=== PATIENT | female | born 1965 | race Caucasian/White ===

== ENCOUNTER → 2016-11-05 | Outpatient (CLI) | payer BC ==
--- NOTE | 2016-11-06 10:00 | MM ---
Reason for exam: screening (asymptomatic). Last mammogram was performed 1 year ago. History: Patient is postmenopausal and is nulliparous. Family history of breast cancer in 2 maternal aunts and breast cancer in cousin. Physical Findings: A clinical breast exam by your physician is recommended on an annual basis and results should be correlated with mammographic findings. MG Screening Mammo w CAD Bilateral CC and MLO view(s) were taken. Prior study comparison: November 11, 2015, bilateral MG screening mammo w CAD. September 30, 2005, bilateral screening mammogram w/CAD. The breast tissue is extremely dense which could obscure a lesion on mammography. There is no discrete abnormality. No significant changes when compared with prior studies. ASSESSMENT: Negative, BI-RAD 1 RECOMMENDATION: Routine screening mammogram of both breasts in 1 year.
== END | disposition home or self-care (01) ==
LOC: RADMAMWWP 14:40
PROVIDERS: ATTEND Family Medicine
DX: Z12.31 Encounter for screening mammogram for malignant neoplasm of breast (principal)

== ENCOUNTER → 2017-12-16 | Outpatient (CLI) | payer BC ==
--- NOTE | 2017-12-17 13:51 | MM ---
Reason for exam: screening (asymptomatic). Last mammogram was performed 1 year and 1 month ago. History: Patient is postmenopausal and is nulliparous. Family history of breast cancer in 2 maternal aunts and breast cancer in cousin. Physical Findings: A clinical breast exam by your physician is recommended on an annual basis and results should be correlated with mammographic findings. MG Screening Mammo w CAD Bilateral CC and MLO view(s) were taken. Prior study comparison: November 05, 2016, bilateral MG screening mammo w CAD. November 11, 2015, bilateral MG screening mammo w CAD. The breast tissue is extremely dense which could obscure a lesion on mammography. There is chronic nodularity bilaterally. No significant changes when compared with prior studies. ASSESSMENT: Benign, BI-RAD 2 RECOMMENDATION: Routine screening mammogram of both breasts in 1 year.
== END | disposition home or self-care (01) ==
LOC: RADMAMWWP 09:14
PROVIDERS: ATTEND Family Medicine
DX: Z12.31 Encounter for screening mammogram for malignant neoplasm of breast (principal); Z80.3 Family history of malignant neoplasm of breast
CPT/HCPCS: 77067

== ENCOUNTER → 2018-12-27 | Outpatient (CLI) | payer BC ==
--- NOTE | 2018-12-28 10:56 | MM ---
Reason for exam: screening (asymptomatic). Last mammogram was performed 1 year ago. History: Patient is postmenopausal, history of other cancer, and is nulliparous. Family history of breast cancer in maternal aunt, breast cancer in cousin, and ovarian cancer in cousin. Physical Findings: A clinical breast exam by your physician is recommended on an annual basis and results should be correlated with mammographic findings. MG Screening Mammo w CAD Bilateral CC and MLO view(s) were taken. Prior study comparison: December 16, 2017, bilateral MG screening mammo w CAD. November 05, 2016, bilateral MG screening mammo w CAD. The breast tissue is extremely dense which could obscure a lesion on mammography. There is no discrete abnormality. No significant changes when compared with prior studies. ASSESSMENT: Negative, BI-RAD 1 RECOMMENDATION: Routine screening mammogram of both breasts in 1 year.
== END | disposition home or self-care (01) ==
LOC: RADMAMWWP 08:15
PROVIDERS: ATTEND Family Medicine
DX: Z12.31 Encounter for screening mammogram for malignant neoplasm of breast (principal); Z80.3 Family history of malignant neoplasm of breast
CPT/HCPCS: 77067

== ENCOUNTER 2019-05-31 07:27 | Day surgery (SDC) | payer BC ==
[2019-05-25 16:14] VITALS: BMI 19.8
[~2019-05-31 07:27] MED LIST: LACTATED RINGERS 1,000 ML IV SCH; LIDOCAINE 1% 20 ML VIAL (10MG/ML) FOR IV START INTRADERMA PRN; MOXIFLOXACIN HCL 0.5% DROPS 3 ML BTL OP ONE; TETRACAINE 0.5% OPHTH (PF) DROPS 4 ML BTL OP ONE; TIMOLOL 0.5% OPHTH DROPS 5 ML BTL OP ONE
[2019-05-31 08:05] VITALS: TEMP 97.8
[2019-05-31] MEDS: CYCLOPENTOLATE 1% OPHTH SOLN 2 ML BTL OP ONE ×5 (08:10→08:25)
[2019-05-31] MEDS: PHENYLEPHRINE 2.5% OPHTH DRP 2ML OP NR ×5 (08:13→08:25)
[2019-05-31] MEDS ORDERED: LACTATED RINGERS 1,000 ML IV ONE (08:17)
[2019-05-31] MEDS ORDERED: fentaNYL (PF) 50 MCG/ML 2 ML AMP ONE (08:26)
[2019-05-31] MEDS ORDERED: MIDAZOLAM 2 MG/2 ML VIAL ONE (08:26)
[2019-05-31] MEDS ORDERED: HYALURONATE SODIUM INTRAOCULAR 1 EACH SYRINGE (12MG/ML) INTRAOCULA ONE (08:34)
[2019-05-31] MEDS ORDERED: LIDOCAINE 1% (PF) 10MG/ML VIAL SQ ONE (08:34)
[2019-05-31] MEDS ORDERED: BALANCED SALT IRRIG SOLN COMB2 15 ML IRRIG.SOLN IRRIGATION ONE (08:34)
[2019-05-31] MEDS ORDERED: EPINEPHrine (PF) 0.3 ML in BALANCED SALT IRRIG SOLN COMB2 500 ML IRRIGATION ONE (08:35)
--- NOTE | 2019-05-31 08:59 | P.OP ---
Date of Procedure: 05/31/19 Preoperative Diagnosis: NS & CS & PSC & reg astig Postoperative Diagnosis: same Procedure(s) Performed: PIOL OS Implants: [id number] 11.50 Anesthesia: MAC Surgeon: Wai Liang Estimated Blood Loss (ml): 0 Pathology: none sent Condition: stable Disposition: same day Indications for Procedure: blurry vision Operative Findings: No complications
[2019-05-31 09:09] VITALS: RESP 16
[2019-05-31 09:18] VITALS: BP 148/72; PULSE 50
--- NOTE | 2019-05-31 22:55 | OP ---
OPERATIVE REPORT DATE OF SURGERY: May 31, 2019. PROCEDURE PERFORMED: Phacoemulsification of cataract and intraocular lens implant of the left eye. PREOPERATIVE DIAGNOSES: Nuclear sclerosis, cortical sclerosis, posterior subcapsular cataract and regular astigmatism. POSTOPERATIVE DIAGNOSES: Nuclear sclerosis, cortical sclerosis, posterior subcapsular cataract and regular astigmatism. SURGEON: Dr. Wai Liang. ANESTHESIA: Topical. ESTIMATED BLOOD LOSS: Is none. SPECIMEN: Taken none. NARRATIVE: After signing the proper consent, the patient was brought to the operating room. There she was asked to sit upright in the axis of 0 and 180 degrees were identified and marked with a gentian petra marker. She was then placed in the proper supine position under cardiac monitoring, then prepped and draped in the usual sterile manner. She was approached from her left temporal side and using previously acquired corneal topography information, the axis of 87 degrees was identified and marked with a corneal axis marker. At the 5 o'clock position, an MVR blade was used to create a paracentesis port. Through this opening, 1% xylocaine MPF 50/50 mix with balanced salt solution was injected into the anterior chamber. This was followed by stabilization of the anterior chamber with Amvisc. At the 3 o'clock position, a 2.5 mm keratome was used to create a self-sealing corneal flap incision. Through this opening a cystotome was introduced to begin a continuous tear capsulorrhexis which was then completed using the Utrata forceps. Hydrodissection and hydrodelineation of the lens was accomplished with balanced salt solution. Phacoemulsification of the lens utilizing phaco chop was accomplished in 6.68 seconds at 13% power. Additional Xylocaine MPF was instilled into the anterior chamber. This was followed by removal of the remaining cortex with irrigation and aspiration along with careful polishing of the posterior capsule in the capsule vacuum mode. Additional Amvisc was then used to stabilize the capsular bag and a Hang and Hang model ZCT 225 11.5 diopter posterior chamber intraocular lens was then injected into the capsular bag without difficulty. The remaining viscoelastic was removed from in and around the intra-ocular lens and the lens was then rotated into the proper position at 87 degrees and that was confirmed with the corneal marker at the end of the case. The eye was then brought to normal intraocular pressures through the paracentesis port with balanced salt solution and the eye was confirmed watertight. She then received 2 drops of 0.5% timolol followed by 2 drops of moxifloxacin, was then lightly patched and shielded in the usual manner. There were no complications from the procedure. She tolerated the procedure well and was returned to outpatient recovery in good condition. INEZ / SHORTY: [id number] /
== END 2019-05-31 09:34 | disposition home or self-care (01) ==
LOC: OR 07:27
PROVIDERS: ATTEND Ophthalmology
DX: H25.13 Age-related nuclear cataract, bilateral (principal); H25.042 Posterior subcapsular polar age-related cataract, left eye; H25.012 Cortical age-related cataract, left eye; H52.223 Regular astigmatism, bilateral; H35.372 Puckering of macula, left eye; H35.413 Lattice degeneration of retina, bilateral; H00.023 Hordeolum internum right eye, unspecified eyelid; H52.4 Presbyopia; H52.13 Myopia, bilateral; I10 Essential (primary) hypertension; E78.5 Hyperlipidemia, unspecified; M32.9 Systemic lupus erythematosus, unspecified; F17.210 Nicotine dependence, cigarettes, uncomplicated; Z79.899 Other long term (current) drug therapy; Z88.2 Allergy status to sulfonamides; Z90.710 Acquired absence of both cervix and uterus; Z85.820 Personal history of malignant melanoma of skin; Z90.89 Acquired absence of other organs; Z98.890 Other specified postprocedural states; Z86.69 Personal history of other diseases of the nervous system and sense organs; Z86.79 Personal history of other diseases of the circulatory system; Z97.3 Presence of spectacles and contact lenses; Z82.61 Family history of arthritis; Z82.49 Family history of ischemic heart disease and other diseases of the circulatory system; Z83.518 Family history of other specified eye disorder
CPT/HCPCS: 66984; V2787; C1780; J2250; J0171; J3010; J2001

== ENCOUNTER 2019-06-14 09:26 | Day surgery (SDC) | payer BC ==
[2019-06-12 15:14] VITALS: BMI 19.8
[2019-06-14] MEDS: PHENYLEPHRINE 2.5% OPHTH DRP 2ML OP NR ×3 (10:37→10:49)
[2019-06-14] MEDS: CYCLOPENTOLATE 1% OPHTH SOLN 2 ML BTL OP ONE ×3 (10:40→10:52)
[2019-06-14 10:42] VITALS: RESP 16; TEMP 98.3
[2019-06-14] MEDS ORDERED: fentaNYL (PF) 50 MCG/ML 2 ML AMP ONE (11:30)
[2019-06-14] MEDS ORDERED: MIDAZOLAM 2 MG/2 ML VIAL ONE (11:30)
[2019-06-14] MEDS ORDERED: HYALURONATE SODIUM INTRAOCULAR 1 EACH SYRINGE (12MG/ML) INTRAOCULA ONE (11:40)
[2019-06-14] MEDS ORDERED: BALANCED SALT IRRIG SOLN COMB2 15 ML IRRIG.SOLN INTRAOCULA ONE (11:40)
[2019-06-14] MEDS ORDERED: LIDOCAINE 1% (PF) 10MG/ML VIAL SQ ONE (11:40)
[2019-06-14] MEDS ORDERED: EPINEPHrine (PF) 0.3 ML in BALANCED SALT IRRIG SOLN COMB2 500 ML IRRIGATION ONE (11:41)
--- NOTE | 2019-06-14 12:00 | P.OP ---
Date of Procedure: 06/14/19 Preoperative Diagnosis: NS & CS Postoperative Diagnosis: same Procedure(s) Performed: PIOL, OD Implants: [id number], 11.0 Anesthesia: MAC Surgeon: Wai Liang Estimated Blood Loss (ml): 0 Pathology: none sent Condition: stable Disposition: same day Indications for Procedure: blurry vision Operative Findings: no complications
[2019-06-14 12:35] VITALS: BP 161/94; PULSE 54
--- NOTE | 2019-06-14 17:57 | OP ---
OPERATIVE REPORT DATE OF SURGERY: 06/14/2019 PROCEDURE: Phacoemulsification of cataract and intraocular lens implant of the right eye. PREOPERATIVE DIAGNOSIS: Nuclear sclerosis and cortical sclerosis, right eye. POSTOPERATIVE DIAGNOSIS: Nuclear sclerosis and cortical sclerosis, right eye. SURGEON: Dr. Wai Liang. ANESTHESIA: Topical. ESTIMATED BLOOD LOSS: None. SPECIMEN TAKEN: None. NARRATIVE: After obtaining the appropriate consent, the patient was brought to the operating room. There she was asked to sit upright, and the axes of 0 and 180 degrees were identified and marked with a gentian petra marker. She was then placed in the proper supine position under cardiac monitoring, then prepped and draped in the usual sterile manner. She was approached from the right temporal side. Using previously acquired corneal topography information, the axis of 110 degrees was identified and marked with a corneal axis marker. At the 11 o'clock position, an MVR blade was used to create a paracentesis port. Through this opening 1% xylocaine MPF 50:50 mix with balanced salt solution was injected into the anterior chamber. This was followed by stabilization of the anterior chamber with Amvisc. At the 9 o'clock position, a 2.5 mm keratome was used to create a self-sealing corneal flap incision. Through this opening a cystotome was introduced to begin a continuous tear capsulorrhexis, which was then completed using the Utrata forceps. Hydrodissection and hydrodelineation of the lens was accomplished with balanced salt solution. Phacoemulsification of the lens utilizing phaco chop was accomplished in 0:00.62 seconds at 2% power. This was followed by instillation of additional xylocaine MPF and cleaning of the posterior capsule under irrigation and aspiration as well as careful polishing of the capsule in the posterior capsule mode. Amvisc was then used to stabilize the capsular bag and a Hang & Hang model [id number], 11-diopter posterior chamber intraocular lens was then injected into the capsular bag without difficulty. The remaining viscoelastic was then removed from in and around the intraocular lens and the eye was brought to normal intraocular pressure through the paracentesis port. The eye was confirmed to be watertight. She then received 2 drops of 0.5% timolol followed by 2 drops of moxifloxacin at the end of the case. She was then lightly patched and shielded in the usual manner and returned to Recovery in good condition. MMODL / IJN: [id number] /
== END 2019-06-14 12:43 | disposition home or self-care (01) ==
LOC: OR 09:26
PROVIDERS: ATTEND Ophthalmology
DX: H25.11 Age-related nuclear cataract, right eye (principal); H25.011 Cortical age-related cataract, right eye; H35.372 Puckering of macula, left eye; H35.413 Lattice degeneration of retina, bilateral; H00.023 Hordeolum internum right eye, unspecified eyelid; H00.026 Hordeolum internum left eye, unspecified eyelid; H52.4 Presbyopia; H52.13 Myopia, bilateral; H52.223 Regular astigmatism, bilateral; I11.9 Hypertensive heart disease without heart failure; E78.5 Hyperlipidemia, unspecified; M32.9 Systemic lupus erythematosus, unspecified; F17.210 Nicotine dependence, cigarettes, uncomplicated; Z79.899 Other long term (current) drug therapy; Z98.42 Cataract extraction status, left eye; Z88.2 Allergy status to sulfonamides; Z96.1 Presence of intraocular lens; Z90.710 Acquired absence of both cervix and uterus; Z98.890 Other specified postprocedural states; Z97.3 Presence of spectacles and contact lenses; Z90.89 Acquired absence of other organs; Z85.820 Personal history of malignant melanoma of skin; Z82.61 Family history of arthritis; Z82.49 Family history of ischemic heart disease and other diseases of the circulatory system
CPT/HCPCS: 66984; V2787; C1780; J2250; J0171; J3010; J2001

== ENCOUNTER → 2019-08-09 | Outpatient (CLI) | payer BC ==
[2019-08-09 19:00] LABS: Chol/HDL Ratio 3.21; LDL Cholesterol,Calculated 83.6 mg/dL (0.0-131.0); VLDL Calculation 20.4 mg/dL (5.00-40.00)
== END ==
LOC: LABWHC1 12:47
PROVIDERS: ATTEND Physician Assistant
DX: E78.5 Hyperlipidemia, unspecified (principal)
CPT/HCPCS: 36415; 80061

== ENCOUNTER → 2021-01-03 | Outpatient (CLI) | payer BC ==
--- NOTE | 2021-01-06 09:06 | MM ---
Reason for exam: screening (asymptomatic). Last mammogram was performed 2 years ago. History: Patient is postmenopausal, history of other cancer, and is nulliparous. Family history of breast cancer in maternal aunt, breast cancer in cousin, and ovarian cancer in cousin. Physical Findings: A clinical breast exam by your physician is recommended on an annual basis and results should be correlated with mammographic findings. MG 3D Screening Mammo W/Cad Bilateral CC and MLO view(s) were taken. Prior study comparison: December 27, 2018, bilateral MG screening mammo w CAD. December 16, 2017, bilateral MG screening mammo w CAD. The breast tissue is extremely dense which could obscure a lesion on mammography. There is no discrete abnormality. ASSESSMENT: Negative, BI-RAD 1 RECOMMENDATION: Routine screening mammogram of both breasts in 1 year.
== END | disposition home or self-care (01) ==
LOC: RADMAMWWP 07:14
PROVIDERS: ATTEND Family Medicine
DX: Z12.31 Encounter for screening mammogram for malignant neoplasm of breast (principal); Z78.0 Asymptomatic menopausal state; Z80.3 Family history of malignant neoplasm of breast
CPT/HCPCS: 77063; 77067

== ENCOUNTER → 2021-10-14 | Outpatient (CLI) | payer BC ==
[2021-10-15 01:05] LABS: African American GFR (CKD) 72.4 (60.0-200.0); Non-African American GFR(CKD) 62.5 (60.0-200.0); Potassium 3.9 mmol/L (3.5-5.5)
[2021-10-15 01:48] LABS: HGB 15.8 g/dL (12.0-15.0); MCHC 32.2 g/dL (32.0-37.0); Mean Platelet Volume 11.2 fL (9.5-12.2); NRBC Per 100 WBC 0 /100 WBCS (0.0-0.0); Platelet Count 276 X 10*3/uL (140-440); RBC 5.27 X 10*6/uL (4.10-5.20); WBC 9.06 X 10*3/uL (4.50-10.00)
== END ==
LOC: LABPAT 15:28
PROVIDERS: ATTEND Internal Medicine Interventional Cardiology
DX: Z01.812 Encounter for preprocedural laboratory examination (principal); R94.39 Abnormal result of other cardiovascular function study
CPT/HCPCS: 80051; 82565; 84520; 85027

== ENCOUNTER 2021-10-17 09:19 | Day surgery (SDC) | payer BC ==
[2021-10-15 13:35] VITALS: BMI 19.0
[~2021-10-17 09:19] MED LIST changes: +ALPRAZolam 0.25 MG TAB PO PRN; +ALPRAZolam 0.5 MG TAB PO PRN; +ASPIRIN 325 MG TAB PO STA; +HEPARIN SODIUM,PORCINE 10,000 UNIT in SODIUM CHLORIDE 0.9% 1,000 ML IRRIGATION PRN; +HEPARIN SODIUM,PORCINE 2,500 UNIT in SODIUM CHLORIDE 0.9% 250 ML IRRIGATION PRN; -LACTATED RINGERS 1,000 ML IV SCH; -LIDOCAINE 1% 20 ML VIAL (10MG/ML) FOR IV START INTRADERMA PRN; -MOXIFLOXACIN HCL 0.5% DROPS 3 ML BTL OP ONE; +NITROGLYCERIN SL TABS 0.4 MG TAB SUBLINGUAL PRN; +SODIUM CHLORIDE 0.9% 1,000 ML in EMPTY BAG 1 BAG IV SCH; -TETRACAINE 0.5% OPHTH (PF) DROPS 4 ML BTL OP ONE; -TIMOLOL 0.5% OPHTH DROPS 5 ML BTL OP ONE
[2021-10-17] MEDS ORDERED: SODIUM CHLORIDE 0.9% 1,000 ML IV ONE (09:48)
[2021-10-17 10:06] VITALS: TEMP 97.2
[2021-10-17] MEDS ORDERED: HEPARIN SODIUM 1,000 UN/ML (10ML VL) ONE (12:31)
[2021-10-17] MEDS ORDERED: VERAPAMIL 2.5 MG/ML 2 ML AMP ONE (12:31)
[2021-10-17] MEDS ORDERED: LIDOCAINE 1% INJ 10MG/ML (20 ML MDV) ONE (12:31)
[2021-10-17] MEDS ORDERED: MIDAZOLAM 2 MG/2 ML VIAL IVP ONE (12:43)
[2021-10-17] MEDS ORDERED: LIDOCAINE 1% INJ 10MG/ML (20 ML MDV) SQ ONE ×2 (12:45→12:46)
[2021-10-17] MEDS: VERAPAMIL SYRINGE (5 MG/10 ML) INTRAARTER ONE ×2 (12:48→12:54)
[2021-10-17] MEDS ORDERED: HEPARIN SODIUM 1,000 UN/ML (10ML VL) IVP ONE (12:49)
[2021-10-17] MEDS ORDERED: IOPAMIDOL-370 125ML BTL INJ ONE (12:54)
[2021-10-17] MEDS ORDERED: RX INFO: IV CONTRAST WAS GIVEN 1 EACH MISC MISCELLANE PRN (13:01)
--- NOTE | 2021-10-17 13:03 | P.PCN ---
Date of Procedure: 10/17/21 Operative Findings: CARDIAC CATHETERIZATION PERFORMING PHYSICIAN: Justin Clay MD, RPVI PROCEDURE PERFORMED: 1. Selective right and left coronary angiogram 2. Left heart catheterization INDICATION: This is a 56-year-old female patient who was a smoker was experiencing shortness of breath with exertion beach she underwent myocardial perfusion imaging stress is and that showed reversibility concerning for severe underlying coronary artery disease. For that reason the patient scheduled to undergo a heart catheterization COMPLICATION: None APPROACH: Right radial artery LEVEL OF SEDATION: Moderate with a sedation length of 10 minutes PROCEDURE DESCRIPTION: After obtaining an informed consent, the patient was brought to cardiac cathode washer. Local anesthesia was performed using lidocaine subcutaneously. The right radial artery was cannulated using Seldinger technique, the guidewire passed easily, following that we advanced a 5-Turkmen sheath dilator assembly, the wire and dilator were removed and sheath was flushed. Following that, 2 mg of verapamil along with 5000 unit heparin were given. Selective right and left coronary angiogram using a 6-Turkmen JR4 and JL 3.5 catheters. Following that we did left heart catheterization using 6-Turkmen pigtail catheter. The procedure was completed there was no complication. SELECTIVE CORONARY ANGIOGRAM: The right coronary artery: Is a medium caliber vessel and a dominant vessel. Its angiographically normal. Distally bifurcates into PDA and PLV branches and both appeared to be angiographically normal Left main: Is angiographically normal. Bifurcates into left circumflex and left anterior descending artery The left circumflex: Is a large caliber vessels and on dominant vessel. The left circumflex is angiographically normal and gives rises into an OM branch which has a high takeoff and seems to be angiographically normal and second OM branch which appears to be also angiographically normal. The left anterior descending artery: Is a large caliber vessel. Its angiographically normal. In the midportion gives rises into a large diagonal branch which seems to be angiographically normal HEMODYNAMICS: The LVEDP was 11 mmHg without significant gradient across aortic valve CONCLUSION: 1. Normal coronary angiogram 2. Normal left-sided filling pressure POSTPROCEDURE MANAGEMENT: Medical treatment and follow-up
[2021-10-17] MEDS ORDERED: SODIUM CHLORIDE 0.9% 1,000 ML IV SCH (13:15)
[2021-10-17 13:42] VITALS: RESP 16
[2021-10-17 16:50] VITALS: BP 118/72; PULSE 56
[2021-10-17] MEDS ORDERED: NON FORMULARY DRUG (Magnesium Oxide 250 MG Tab) PO SCH (21:00)
[2021-10-17] MEDS ORDERED: hydroCHLOROthiazide 25 MG TAB PO SCH (21:00)
[2021-10-17] MEDS ORDERED: ATORVASTATIN 20 MG TAB PO SCH (21:00)
[2021-10-17] MEDS ORDERED: PROPRANOLOL HCL 120 MG PO SCH (21:00)
[2021-10-17] MEDS ORDERED: NON FORMULARY DRUG (Cholecalciferol 1,000 UNIT Tab) PO SCH (21:00)
[2021-10-18] MEDS ORDERED: MOEXIPRIL HCL 15 MG PO SCH (09:00)
== END 2021-10-17 16:35 | disposition home or self-care (01) ==
LOC: CATHCVL 09:19
PROVIDERS: ATTEND Internal Medicine Interventional Cardiology
DX: R94.39 Abnormal result of other cardiovascular function study (principal); I10 Essential (primary) hypertension; F17.210 Nicotine dependence, cigarettes, uncomplicated; Z20.822 Contact with and (suspected) exposure to COVID-19; Z88.2 Allergy status to sulfonamides; Z79.899 Other long term (current) drug therapy
CPT/HCPCS: 93458; 87635; C1894; J2250; J2001; J1644; Q9967

== ENCOUNTER → 2022-01-05 | Outpatient (CLI) | payer BC ==
--- NOTE | 2022-01-07 11:45 | MM ---
Reason for Exam: Screening (asymptomatic). Last screening mammogram was performed 12 month(s) ago. Patient History: Menarche at age 11. Patient has no children. Postmenopausal. Other cancer. Maternal cousin had breast cancer at or over age 50. Maternal cousin had ovarian cancer under age 50. Maternal aunt had breast cancer at or over age 50. Risk Values: Lise 5 year model risk: 1.4%. NCI Lifetime model risk: 8.7%. Film Views: Bilateral CC views were taken. Bilateral MLO views were taken. Prior Study Comparison: 12/16/2017 Bilateral Screening Mammogram, [facility]. 12/27/2018 Bilateral Screening Mammogram, [facility]. 01/03/2021 Bilateral Screening Mammogram, [facility]. Tissue Density: The breast tissue is heterogeneously dense. This may lower the sensitivity of mammography. Findings: Analyzed By CAD. No suspicious new mass or worrisome cluster of microcalcification in either breast. Overall Assessment: Benign, BI-RAD 2 Management: Screening Mammogram of both breasts in 1 year. A clinical breast exam by your physician is recommended on an annual basis and results should be correlated with mammographic findings. Some Advise annual bilateral breast ultrasound surveillance in patients with background dense tissue.
== END | disposition home or self-care (01) ==
LOC: RADMAMWWP 16:33
PROVIDERS: ATTEND Family Medicine
DX: Z00.00 Encounter for general adult medical examination without abnormal findings (principal); Z12.31 Encounter for screening mammogram for malignant neoplasm of breast; Z80.3 Family history of malignant neoplasm of breast
CPT/HCPCS: 77063; 77067

== ENCOUNTER → 2023-01-06 | Outpatient (CLI) | payer BC ==
--- NOTE | 2023-01-06 09:52 | MM ---
Reason for Exam: Screening (asymptomatic). Last screening mammogram was performed 12 month(s) ago. Patient History: Menarche at age 11. Patient has no children. Left ovary removed at age 42. Right ovary removed at age 42. Hysterectomy at age 42. Postmenopausal. Maternal cousin had breast cancer, age 48. Maternal aunt had breast cancer, age 70. Risk Values: Lise 5 year model risk: 1.5%. NCI Lifetime model risk: 8.5%. Prior Study Comparison: 12/27/2018 Bilateral Screening Mammogram, [facility]. 01/03/2021 Bilateral Screening Mammogram, [facility]. 01/05/2022 Bilateral MG 3D screening mammo w/cad, [facility]. Tissue Density: The breast tissue is heterogeneously dense. This may lower the sensitivity of mammography. Findings: Analyzed By CAD. There is no suspicious group of microcalcifications or new suspicious mass in either breast. Overall Assessment: Negative, BI-RAD 1 Management: Screening Mammogram of both breasts in [address] [facility] will attempt to contact patient to return for supplemental views and ultrasound if indicated. Patient should continue monthly self-breast exams. A clinical breast exam by your physician is recommended on an annual basis. This exam should not preclude additional follow-up of suspicious palpable abnormalities. Note on Lise scores and lifetime risk: 1. A Lise score greater than 3% is considered moderate risk. If this is the case, consider specialist referral to assess eligibility for a risk reducing agent. 2. If overall lifetime risk for the development of breast cancer is 20% or higher, the patient may qualify for future screening with alternating mammogram and breast MRI. Electronically signed and approved by: Naveed Lopez DO
== END | disposition home or self-care (01) ==
LOC: RADMAMWWP 07:04
PROVIDERS: ATTEND Family Medicine
DX: Z12.31 Encounter for screening mammogram for malignant neoplasm of breast (principal); Z78.0 Asymptomatic menopausal state; Z80.3 Family history of malignant neoplasm of breast
CPT/HCPCS: 77063; 77067

== ENCOUNTER → 2024-02-10 | Outpatient (CLI) | payer BC ==
--- NOTE | 2024-02-12 21:56 | MR ---
EXAMINATION TYPE: MR tspine/lspine wo con DATE OF EXAM: 02/10/2024 COMPARISON: None HISTORY: Chronic mid and lower back pain, radiates into buttocks. CONTRAST: Performed utilizing 0 mL intravenous Gadavist gadolinium contrast. TECHNIQUE: Multiplanar, multiecho imaging on a 3.0 Danita magnet is performed through the thoracic spi ne. Within the upper novelty chain maker sagittal image there is some disc bulging at C5-6 with some posterior thecal s ac compression likely from facets. This appears to be contributing to stenosis. Dedicated MRI cervica l spine recommended for additional evaluation. Spinal cord maintains normal signal through its visualized course. Vertebral body alignment is normal. Vertebral body heights are preserved. Disc heights are preserved. Disc hydration levels are preserved. No spinal canal stenosis is evident. IMPRESSION: 1. No acute abnormality MRI thoracic spine. 2. Suspected spinal canal stenosis C5-6. Dedicated MRI can be performed for additional evaluation. EXAMINATION TYPE: MR tspine/rolanda wo con DATE OF EXAM: 02/10/2024 COMPARISON: None HISTORY: Chronic mid and lower back pain, radiates into buttocks. CONTRAST: 0 mL intravenous Gadavist. TECHNIQUE: Multiplanar, multisequence images of the lumbar spine were acquired. FINDINGS: Cord terminates at the L1 level. No significant loss of disc height is present. Tarlov cys ts are present within the lower sacral canal. L5-S1: No significant disc bulge or disc herniation. No spinal canal stenosis. No foraminal stenosi s. Mild facet hypertrophy is present. L4-L5: Broad-based disc bulge has mild to moderate anterior thecal sac compression. Facet hypertrophy and ligamentum flavum laxity is posterior lateral thecal sac compression. Findings are contributing to some canal narrowing. Impingement of the exiting left L5 nerve root may be presenta. Correlate wit h radicular symptoms L3-L4: No significant disc bulge or disc herniation. No spinal canal stenosis. No foraminal stenosi s. Some facet hypertrophy and ligamentum flavum laxity is posterior lateral thecal sac compression. L2-L3: No significant disc bulge or disc herniation. No spinal canal stenosis. No foraminal stenosi s. L1-L2: No significant disc bulge or disc herniation. No spinal canal stenosis. No foraminal stenosi s. T12-L1: No significant disc bulge or disc herniation. No spinal canal stenosis. No foraminal stenos is. IMPRESSION: 1. Mild to moderate disc bulge at L4-5 with facet hypertrophy and ligamentum flavum laxity. Findings are. 2 cm spinal canal narrowing to this level. 2. Other may be impingement of the exiting left L5 nerve root from facet hypertrophy and disc bulge L 4-5. Correlate with radicular symptoms.
== END | disposition home or self-care (01) ==
LOC: RADMRIMAIN 05:55
PROVIDERS: ATTEND Psychiatry & Neurology Neurology
DX: M54.6 Pain in thoracic spine (principal); M47.819 Spondylosis without myelopathy or radiculopathy, site unspecified; M51.36 Other intervertebral disc degeneration, lumbar region
CPT/HCPCS: 72146; 72148

== ENCOUNTER → 2024-03-13 | Outpatient (CLI) | payer BC ==
--- NOTE | 2024-03-13 10:19 | MR ---
EXAMINATION TYPE: MR cervical spine wo con DATE OF EXAM: 03/13/2024 COMPARISON: None HISTORY: Neck pain, headaches. TECHNIQUE: Multiplanar, multisequence images of the cervical spine were acquired without contrast. FINDINGS: Alignment: The cervical vertebral bodies have preserved heights. Mild retrolisthesis of C5 on C6. Bones: Type I Modic changes involving the inferior endplate of the C5 vertebral body and superior end plate of the C6 vertebral body. The remaining bone signal is within normal limits. Multilevel degene rative disc disease is noted. Cord: The spinal cord is unremarkable with regards to their signal intensity and morphology. Discs: Multilevel disc desiccation is present. C2-C3: No significant disc pathology. The spinal canal is patent. No neural foraminal stenosis. C3-C4: No significant disc pathology. The spinal canal is patent. No neural foraminal stenosis. C4-C5: Broad-based disc bulge without significant effacement of the anterior thecal sac. Annular fiss ure identified. Uncovertebral joint hypertrophy with mild right neural foraminal stenosis. The left neural foramen is patent. C5-C6: Broad-based disc bulge with mild to moderate effacement of the anterior thecal sac. Uncoverteb ral joint and facet arthropathy resulting in moderate bilateral neural foraminal stenosis. C6-C7: No significant disc pathology. The spinal canal is patent. No neural foraminal stenosis. C7-T1: No significant disc pathology. The spinal canal is patent. No neural foraminal stenosis. Other: Right thyroid lobe 8 mm T2 hyperintense nodule. IMPRESSION: C4-C6 degenerative disc disease with disc bulge at C5-C6 and retrolisthesis at this level contributin g to mild to moderate central canal stenosis. Uncovertebral joint hypertrophy and facet arthropathy r esults in bilateral neural foraminal stenosis at this level.
== END | disposition home or self-care (01) ==
LOC: RADMRIMAIN 05:55
PROVIDERS: ATTEND Psychiatry & Neurology Neurology
DX: M50.021 Cervical disc disorder at C4-C5 level with myelopathy (principal); M99.71 Connective tissue and disc stenosis of intervertebral foramina of cervical region; M47.12 Other spondylosis with myelopathy, cervical region
CPT/HCPCS: 72141

== ENCOUNTER → 2025-02-08 | Outpatient (CLI) | payer BC ==
--- NOTE | 2025-02-08 13:13 | BD ---
EXAMINATION TYPE: Axial Bone Density DATE OF EXAM: 02/08/2025 CLINICAL HISTORY: 60 years old Female. ICD-10 CODE: Z13.820 MENOPAUSAL STATE , Additional History: Height: 67.2 Weight: 130 FRAX RISK QUESTIONS: Secondary Osteoporosis: 3. Menopause before 45: yes Current Tobacco Use: yes RISK FACTORS HISTORY OF: MEDICATIONS: EXAM MEASUREMENTS: Bone mineral densitometry was performed using the 51 [employer] System. Bone mineral density as measured about the Lumbar spine is: ----- L1-L4(G/cm2): 1.007 T Score Values are as follows: ----- L1: -2.1 ----- L2: -1.8 ----- L3: -1.6 ----- L4: -0.7 ----- L1-L4: -1.4 Z Score Values are as follows: ----- L1: -0.6 ----- L2: -0.4 ----- L3: -0.1 ----- L4: 0.8 ----- L1-L4: 0.0 First bone density at [facility] Bone mineral density about the R hip (g/cm2): 0.756 Bone mineral density about the L hip (g/cm2): 0.787 T Score values are as follows: -----R Neck: -2.1 -----L Neck: -1.9 -----R Total: -2.0 -----L Total: -1.7 Z Score values are as follows: -----R Neck: -0.7 -----L Neck: -0.4 -----R Total: -0.9 -----L Total: -0.6 First dexa at [facility] FRAX%s: The graph provided illustrates a 9.5% chance for a major osteoporotic fx and a 2.4% chance fo r the hips probability for fx in 10 years time. IMPRESSION: Osteopenia (T Score between -2.5 and -1). There is slightly increased risk of fracture and the patient may be considered for treatment. Re-Screen 2-5 years. NOTE: T-SCORE=SD OF THE YOUNG ADULT MEAN. [facility], , 02/08/2025 1:11 PM
--- NOTE | 2025-02-08 14:17 | MM ---
Reason for Exam: Screening (asymptomatic). Last mammogram was performed 1 year(s) and 1 month(s) ago. Patient History: Menarche at age 11. Patient has no children. Left ovary removed at age 42. Right ovary removed at age 42. Hysterectomy at age 42. Postmenopausal. Maternal cousin had breast cancer, age 48. Maternal aunt had breast cancer, age 70. Risk Values: Lise 5 year model risk: 1.6%. NCI Lifetime model risk: 7.9%. Prior Study Comparison: 12/16/2017 Bilateral Screening Mammogram, [facility]. 12/27/2018 Bilateral Screening Mammogram, [facility]. 01/03/2021 Bilateral Screening Mammogram, [facility]. 01/05/2022 Bilateral MG 3D screening mammo w/cad, [facility]. 01/06/2023 Bilateral MG 3D screening mammo w/cad, [facility]. 01/10/2024 Bilateral MG 3D screening mammo w/cad, [facility]. Tissue Density: The breasts are heterogeneously dense, which may obscure small masses. Findings: Analyzed By CAD. There is no suspicious group of microcalcifications or new suspicious mass in either breast. Overall Assessment: Negative, BI-RAD 1 Management: Screening Mammogram of both breasts in 1 year. Patient should continue monthly self-breast exams. A clinical breast exam by your physician is recommended on an annual basis. This exam should not preclude additional follow-up of suspicious palpable abnormalities. Note on Lise scores and lifetime risk: 1. A Lise score greater than 3% is considered moderate risk. If this is the case, consider specialist referral to assess eligibility for a risk reducing agent. 2. If overall lifetime risk for the development of breast cancer is 20% or higher, the patient may qualify for future screening with alternating mammogram and breast MRI. [facility], , 02/08/2025 2:14 PM. Electronically signed and approved by: Leighann Rodriguez M.D. Radiologist
== END | disposition home or self-care (01) ==
LOC: RADMAMWWP 08:07
PROVIDERS: ATTEND Family Medicine
DX: Z12.31 Encounter for screening mammogram for malignant neoplasm of breast (principal); R92.333 Mammographic heterogeneous density, bilateral breasts; M85.89 Other specified disorders of bone density and structure, multiple sites; Z13.820 Encounter for screening for osteoporosis; Z78.0 Asymptomatic menopausal state; Z80.3 Family history of malignant neoplasm of breast
CPT/HCPCS: 77063; 77067; 77080